=== PATIENT | female | born 1980 | race Hispanic/Latino ===

== ENCOUNTER 2017-09-23 16:04 | Outpatient (CLI) | payer OTHER | END 2017-09-23 16:19 | disposition short-term general hospital (02) | LOC: AMB 16:04 | DX: M54.5 Low back pain (principal); R07.81 Pleurodynia | CPT/HCPCS: A0425; A0429 ==

== ENCOUNTER 2017-09-23 16:19 | Emergency (ER) | payer OTHER ==
[~2017-09-23] VITALS: Ht 160 cm; Wt 59.0 kg
[2017-09-23 16:50] LABS: PLATELET COUNT 227 K/uL (152-353)
[2017-09-23 17:09] LABS: POTASSIUM 4.6 mmol/L (3.6-5.2)
[2017-09-23 18:48] VITALS: BP 123/80; TEMP 97.5
== END 2017-09-23 18:54 | disposition short-term general hospital (02) ==
LOC: ED 16:19
PROC: 0T9B70Z Drainage of Bladder with Drainage Device, Via Natural or Artificial Opening (ICD-10-PCS; principal; 2017-09-23)
DX: S22.081A Stable burst fracture of T11-T12 vertebra, initial encounter for closed fracture (principal); W17.89XA Other fall from one level to another, initial encounter
CPT/HCPCS: 36415; 51702; 80053; 80307; 80320; 81000; 85027; 96360; 96365; 96375; 99285; J1885; J2060; J2270; J2405

== ENCOUNTER 2017-09-23 18:59 | Outpatient (CLI) | payer OTHER | END 2017-09-23 20:15 | disposition short-term general hospital (02) | LOC: AMB 18:59 | DX: S22.081A Stable burst fracture of T11-T12 vertebra, initial encounter for closed fracture (principal); W17.89XA Other fall from one level to another, initial encounter | CPT/HCPCS: A0425; A0429 ==